=== PATIENT | male | born 2005 | race Caucasian/White ===

== ENCOUNTER 2024-09-15 11:30 | Emergency (ER) | payer BC ==
[2024-09-15] MEDS ORDERED: Ketorolac Tromethamine 30 MG (1 mL) VIAL ONE (12:07)
[2024-09-15] MEDS ORDERED: Ondansetron ODT 4 MG TAB ONE (12:07)
[2024-09-15 12:53] LABS: Bilirubin Neg (Negative); Blood, Urine Negative (Negative); Clarity Clear (Clear); Glucose, Urine (Dipstick) Normal (Negative); Ketone, Urine Negative (Negative); Leukocyte Negative (Negative); Nitrite Negative (Negative); Protein, Urine (Dipstick) Negative (Neg-Trace); Specific Gravity, Urine 1.015 (1.005-1.030); Urobilinogen Normal mg/dL (Less than 2); pH, Urine 6.5 (5.0-9.0)
[2024-09-15 13:02] LABS: Bacteria/HPF Rare-Few HPF (None Seen); CAUTI Indications for Culture Pelvic or flank pain; RBC/HPF None Seen HPF (0-3); Squamous Epithelial 0-3 HPF (0-3); Urine Culture Reflex No No; WBC/HPF 0-3 HPF (0-3)
[2024-09-15] MEDS ORDERED: Lidocaine 1% PF 5 ML VIAL ONE (13:16)
[2024-09-15] MEDS ORDERED: cefTRIAXone (ROCEPHIN) 500 MG VIAL ONE (13:16)
[2024-09-17 06:05] LABS: Chlam.trachomatis by PCR,Urine DETECTED (NotDetected); GC N.gonorrhoeae PCR,UrineVOID Not Detected (NotDetected)
== END 2024-09-15 13:49 | disposition home or self-care (01) ==
LOC: CSHERS 11:30
DX: N45.2 Orchitis (principal)
CPT/HCPCS: 76870; 81001; 87491; 87591; 93976; 96372; J0696; J1885; Q0162

== ENCOUNTER 2025-09-20 03:38 | Emergency (ER) | payer BC ==
[2025-09-20] MEDS ORDERED: Ondansetron PF 4 MG/2 ML Vial ONE (04:00)
[2025-09-20] MEDS ORDERED: Ketorolac Tromethamine 30 MG (1 mL) VIAL ONE (04:01)
[2025-09-20 04:15] LABS: #Basophils Less than 0.03 10x3/uL (0.0-0.2); #Eosinophils Less than 0.03 10x3/uL (0.0-0.5); #Monocytes 0.95 10x3/uL (0.0-1.1); #Neutrophils 13.79 10x3/uL (1.5-8.4); %Basophils 0.1 % (0.0-2.0); %Eosinophils 0.1 % (0.0-6.0); %Lymphocytes 3.0 % (18.0-47.0); %Monocytes 6.2 % (0.0-10.0); %Neutrophils 89.8 % (40.0-75.0); Hematocrit 41.1 % (38.8-50.0); Hemoglobin 14.7 g/dL (13.5-17.5); Mean Corpuscular Hemoglobin 30.5 pg (27.0-33.0); Mean Corpuscular Volume 85.3 fL (81.2-95.1); Platelet Count 284 10x3/uL (150-450); Red Blood Cell (RBC) Count 4.82 10x6/uL (4.32-5.72); White Blood Cell (WBC) Count 15.35 10x3/uL (3.5-10.5)
[2025-09-20 04:33] LABS: Acetaminophen Less than 10 mcg/mL (Less than 10); Lipase 61 U/L (8-78); Magnesium 1.2 mg/dL (1.6-2.6); Salicylate Less than 8.0 mg/dL (Less than 8.0)
[2025-09-20 04:34] LABS: ALT (SGPT) 46 U/L (Less than 45); AST (SGOT) 32 U/L (11-34); Albumin 4.4 g/dL (3.1-4.5); Alkaline Phosphatase 90 U/L (40-110); Anion Gap 22 mmol/L (10-20); BUN (Urea Nitrogen) 13 mg/dL (8.9-20.6); Bilirubin, Total 0.8 mg/dL (0.3-1.2); Calc. Creatinine Clearance 0 mL/min (70-130); Calcium 10.4 mg/dL (7.8-10.44); Carbon Dioxide 16 mmol/L (22-29); Chloride 104 mmol/L (98-107); Globulin 3.3 g/dL (2.4-3.5); Glucose 154 mg/dL (70-105); Potassium 3.3 mmol/L (3.5-5.1); Sodium 139 mmol/L (136-145)
[2025-09-20] MEDS ORDERED: Magnesium 2 GM/50 ML BAG (IN WATER) ONE (05:37)
[2025-09-20] MEDS ORDERED: Potassium Chloride 20 MEQ (100 mL) BAG ONE (05:38)
[2025-09-20 06:19] LABS: Glucose, Urine (Dipstick) 50 mg/dL (Negative); Leukocyte Negative (Negative); Protein, Urine (Dipstick) Negative (Neg-Trace); Specific Gravity, Urine 1.010 (1.005-1.030)
[2025-09-20 06:27] LABS: Cocaine Metabolite Screen Negative (Negative); THC/Cannabinoid Screen PRELIM POSITIVE (Negative); Tricyclic Screen Negative (Negative)
[2025-09-20] MEDS ORDERED: Acetaminophen 500 MG TAB ONE (06:28)
[2025-09-20 06:31] LABS: Bacteria/HPF None Seen HPF (None Seen); CAUTI Indications for Culture Fever or rigors; RBC/HPF None Seen HPF (0-3); WBC/HPF None Seen HPF (0-3)
[2025-09-20 06:32] LABS: Urine Culture Reflex No No
[2025-09-20] MEDS ORDERED: Iopamidol 370 76% 100 ML VIAL ONE (11:35)
== END 2025-09-20 08:25 | disposition home or self-care (01) ==
LOC: CSHERS 03:38
DX: J10.1 Influenza due to other identified influenza virus with other respiratory manifestations (principal); E87.6 Hypokalemia; E86.1 Hypovolemia; E86.0 Dehydration; E83.42 Hypomagnesemia
CPT/HCPCS: 74177; 80053; 80306; 80307; 81001; 83690; 83735; 85025; 87428; 93005; 96374; 96375; J1630; J1885; J2405; J3475; J3480; Q9967